=== PATIENT | male | born 1945 | race Caucasian/White ===

== ENCOUNTER → 2019-11-01 | Outpatient (CLI) | payer MEDICARE, BC ==
[2019-11-01 20:10] LABS: C Reactive Protein 0.5 mg/dL (0.0-0.8)
== END | disposition home or self-care (01) ==
LOC: LABWHC1 10:34
PROVIDERS: ATTEND Family Medicine
DX: I87.312 Chronic venous hypertension (idiopathic) with ulcer of left lower extremity (principal)
CPT/HCPCS: 36415; 84134; 85652; 86140

== ENCOUNTER 2020-05-22 14:54 | Emergency (ER) | payer MEDICARE, BC ==
[2020-05-22 15:05] VITALS: TEMP 97.7
--- NOTE | 2020-05-22 15:16 | ED ---
General Adult HPI - General Chief complaint: Recheck/Abnormal Lab/Rx Stated complaint: Low BP Time Seen by Provider: 05/22/20 15:15 Source: patient Mode of arrival: ambulatory Limitations: no limitations - History of Present Illness Initial comments: A shows a 75-year-old male past medical history of congestive heart failure, nonhealing wound to the left foot who presents emergency department from the wound care center. Patient reports that he was having his left foot debrided when he began feeling faint and nauseated. States that this is common for him to not be able to withstand pain. They took his blood pressure and noted it was 76 systolic. Recommended transfer to the emergency department. Patient initially refused stating that his blood pressure has a tendency to drop when he is in pain. He was just admitted at [facility] and discharged a few days ago for syncope. States he feels well at this time after the pain down and he drank some water. He states his blood pressure normally runs in the mid 90s systolic. He takes his blood pressure every day. States he has had good intake. Denies fevers or chills. No chest pain or shortness of breath. No current nausea. No vomiting. Denies any black or tarry stools. No other alleviating, precipitating or modifying factors - Related Data Allergies Allergy/AdvReac Type Severity Reaction Status Date / Time acetaminophen [From Vicodin] AdvReac Unknown Verified 05/22/20 14:59 hydrocodone [From Vicodin] AdvReac Unknown Verified 05/22/20 14:59 morphine AdvReac Unknown Verified 05/22/20 14:59 Review of Systems ROS Statement: Those systems with pertinent positive or pertinent negative responses have been documented in the HPI. ROS Other: All systems not noted in ROS Statement are negative. Past Medical History Past Medical History: Cancer, Diabetes Mellitus, Hyperlipidemia, Hypertension, Myocardial Infarction ([place]) Additional Past Medical History / Comment(s): skin ca History of Any Multi-Drug Resistant Organisms: None Reported Past Surgical History: Bowel Resection, Coronary Bypass/CABG Past Psychological History: No Psychological Hx Reported Smoking Status: Former smoker Past Alcohol Use History: None Reported Past Drug Use History: None Reported General Exam Limitations: no limitations General appearance: alert, in no apparent distress Head exam: Present: atraumatic, normocephalic, normal inspection Eye exam: Present: normal appearance, PERRL, EOMI. Absent: scleral icterus, conjunctival injection, periorbital swelling ENT exam: Present: normal exam, mucous membranes moist Neck exam: Present: normal inspection. Absent: tenderness, meningismus, lymphadenopathy Respiratory exam: Present: normal lung sounds bilaterally. Absent: respiratory distress, wheezes, rales, rhonchi, stridor Cardiovascular Exam: Present: regular rate, normal rhythm, normal heart sounds. Absent: systolic murmur, diastolic murmur, rubs, gallop, clicks GI/Abdominal exam: Present: soft, normal bowel sounds. Absent: distended, tenderness, guarding, rebound, rigid Extremities exam: Present: normal inspection, full ROM, normal capillary refill. Absent: tenderness, pedal edema, joint swelling, calf tenderness Back exam: Present: normal inspection Neurological exam: Present: alert, oriented X3, CN II-XII intact Psychiatric exam: Present: normal affect, normal mood Skin exam: Present: warm, dry, intact, normal color. Absent: rash Course Vital Signs 05/22/20 05/22/20 05/22/20 15:00 15:39 16:07 Temperature 97.7 F Pulse Rate 77 62 Pulse Rate [ 76 Left Sitting Pulse Oximetery ] Pulse Rate [ 76 Left Standing Pulse Oximetery ] Pulse Rate [ 75 Left Supine] Respiratory 16 18 Rate Blood Pressure 95/65 103/69 Blood Pressure 98/66 [Left Arm Sitting] Blood Pressure 103/65 [Left Arm Standing] Blood Pressure 103/73 [Left Arm Supine] O2 Sat by Pulse 100 98 Oximetry EKG Findings - EKG Comments: EKG Findings:: EKG demonstrates an atrial sensed, ventricularly paced rhythm. Rate of 75. AL interval 170. QRS 124. QTC of 531. Pacemaker captures appropriately Medical Decision Making - Medical Decision Making Upon arrival patient was placed in room 9. A thorough history and physical exam was performed. Patient's blood pressure is noted to be 103/65. Orthostatics are obtained and the patient has stable pressures. Patient monitored for approximately an hour blood pressures continued to remain stable. Patient is refusing further workup at this time. States that these blood pressures are normal for him. Patient will be discharged home at this time. He does have follow-up with his primary care doctor within the next 2-4 days. Return to the emergency department should he have any new or worsening symptoms or agree to further workup. Patient was in agreement with this. Given written and verbal discharge instructions and discharged home in stable condition Disposition Clinical Impression: Transient hypotension Disposition: HOME SELF-CARE Condition: Stable Instructions (If sedation given, give patient instructions): Hypotension (ED) Additional Instructions: Your blood pressure was recorded as normal in the ER. Follow up with your PCP in 2-4 days. Return to the ED for any new or worsening symptoms. Is patient prescribed a controlled substance at d/c from ED?: No Referrals: Raz Stephens MD [Primary Care Provider] - 1-2 days Time of Disposition: 15:44
[2020-05-22] MEDS ORDERED: NAPROXEN 250 MG TAB PO STA (15:42)
[2020-05-22 16:09] VITALS: BP 103/69; PULSE 62; RESP 18
== END 2020-05-22 16:00 | disposition home or self-care (01) ==
LOC: EC 14:54
DX: I95.89 Other hypotension (principal); I11.0 Hypertensive heart disease with heart failure; I50.9 Heart failure, unspecified; S91.302A Unspecified open wound, left foot, initial encounter; I25.2 Old myocardial infarction; Z87.891 Personal history of nicotine dependence; Z88.5 Allergy status to narcotic agent; Z85.828 Personal history of other malignant neoplasm of skin; Z95.1 Presence of aortocoronary bypass graft; X58.XXXA Exposure to other specified factors, initial encounter
CPT/HCPCS: 93005; 99285